=== PATIENT | male | born 1970 | race Two or more races ===

== ENCOUNTER 2024-10-16 15:33 | Emergency (ER) | payer OTHER ==
--- NOTE | 2024-10-16 16:27 | ED ---
Dizziness HPI - General Chief Complaint: Dizziness Stated Complaint: Headache/Stomach Pain Time Seen by Provider: 10/16/24 16:05 Source: patient, RN notes reviewed Mode of arrival: ambulatory Limitations: no limitations - History of Present Illness Initial Comments: This is a 53-year-old male with no reported medical conditions presenting to emergency department for complaints of dizziness. Patient is deaf and communicates via sign language therefore interpretation was used with video assistance at bedside for history. Patient states that he was in his car driving to work at approximately 1515 this afternoon when he began to feel dizzy. He states that it felt like the room was spinning. Patient arrived at work where he still was not feeling well or his boss urged him to go to the ER to be evaluated. Patient states the dizziness is worsened over the past hour and a half. He states the dizziness associated with positional changes. He den ies blurry or double vision, headaches, tinnitus, chest pain, difficulty breathing, heart palpitations. He states that something similar like this happened about a year ago where he was seen in the ER and given medications and felt better afterwards. He denies recent symptoms of fevers, chills, cough, congestion, rhinorrhea. - Related Data Previous Rx's Medication Instructions Recorded Meclizine [Antivert] 25 mg PO TID PRN #15 tab 10/16/24 Allergies Allergy/AdvReac Type Severity Reaction Status Date / Time No Known Allergies Allergy Verified 10/16/24 15:49 Review of Systems ROS Statement: Those systems with pertinent positive or pertinent negative responses have been documented in the HPI. ROS Other: All systems not noted in ROS Statement are negative. Past Medical History Past Medical History: No Reported History History of Any Multi-Drug Resistant Organisms: None Reported Additional Past Surgical History / Comment(s): left knee Past Psychological History: No Psychological Hx Reported Smoking Status: Never smoker Past Alcohol Use History: None Reported Past Drug Use History: None Reported General Exam Limitations: language barrier (deaf) Eye exam: Present: normal appearance, PERRL, EOMI. Absent: scleral icterus, conjunctival injection, periorbital swelling ENT exam: Present: normal exam, mucous membranes moist Neck exam: Present: normal inspection. Absent: tenderness, meningismus, lymphadenopathy Respiratory exam: Present: normal lung sounds bilaterally. Absent: respiratory distress, wheezes, rales, rhonchi, stridor Cardiovascular Exam: Present: regular rate, normal rhythm, normal heart sounds. Absent: systolic murmur, diastolic murmur, rubs, gallop, clicks GI/Abdominal exam: Present: soft, normal bowel sounds. Absent: distended, tenderness, guarding, rebound, rigid Extremities exam: Present: normal inspection, full ROM, normal capillary refill. Absent: tenderness, pedal edema, joint swelling, calf tenderness Neurological exam: Present: alert, oriented X3, CN II-XII intact Course Vital Signs 10/16/24 10/16/24 10/16/24 15:42 17:25 18:50 Temperature 97.9 F 98.0 F Pulse Rate 75 62 64 Respiratory 18 19 18 Rate Blood Pressure 163/97 156/111 161/104 O2 Sat by Pulse 100 99 99 Oximetry Medical Decision Making - Medical Decision Making Was pt. sent in by a medical professional or institution (Dr. PA, TIMBER GIRDLER, urgent care, hospital, or correction...) When possible be specific @ -No Did you speak to anyone other than the patient for history (EMS, parent, family, police, friend...)? What history was obtained from this source @ -No Did you review nursing and triage notes (agree or disagree)? Why? @ -I reviewed and agree with nursing and triage notes Were old charts reviewed (outside hosp., previous admission, EMS record, old EKG, old radiological studies, urgent care reports/EKG's, correction records)? Report findings @ -No old charts were reviewed Differential Diagnosis (chest pain, altered mental status, abdominal pain women, abdominal pain men, vaginal bleeding, weakness, fever, dyspnea, syncope, headache, dizziness, GI bleed, back pain, seizure, CVA, palpatations, mental health, musculoskeletal)? @ -Differential Dizziness: Benign paroxysmal positional Vertigo, Meniere's disease, otitis media, acoustic neuroma, vertebrobasilar insufficiency, cerebellar stroke, encephalitis, hypovolemic, arrhythmia, coronary artery syndrome, anemia, this is not meant to be an all-inclusive list EKG interpreted by me (3pts min.). @ -Completed at 1729 sinus rhythm with a ventricular of 67, OK interval 154, QRS 109, QT 406, QTc 422. X-rays interpreted by me (1pt min.). @ -None done CT interpreted by me (1pt min.). @ -CT of the brain and C-spine without contrast no acute intracranial process U/S interpreted by me (1pt. min.). @ -None done What testing was considered but not performed or refused? (CT, X-rays, U/S, labs)? Why? @ -None What meds were considered but not given or refused? Why? @ -None Did you discuss the management of the patient with other professionals (professionals i.e. DrTracey, PA, TIMBER GIRDLER, lab, RT, psych nurse, child protective services social worker, avionics systems repairer, teacher, purchasing officer, continuous pillowcase cutter)? Give summary @ -No Was smoking cessation discussed for >3mins.? @ -No Was critical care preformed (if so, how long)? @ -No Were there social determinants of health that impacted care today? How? (Homelessness, low income, unemployed, alcoholism, drug addiction, transportation, low edu. Level, literacy, decrease access to med. care, group home, rehab)? @ -No Was there de-escalation of care discussed even if they declined (Discuss DNR or withdrawal of care, Hospice)? DNR status @ -No What co-morbidities impacted this encounter? (DM, HTN, Smoking, COPD, CAD, Cancer, CVA, ARF, Chemo, Hep., AIDS, mental health diagnosis, sleep apnea, morbid obesity)? @ -None Was patient admitted / discharged? Hospital course, mention meds given and route, prescriptions, significant lab abnormalities, going to OR and other pertinent info. @ -Discharge. 53-year-old male presenting for department with dizziness. Neurological examination completed with no acute deficits, NIH is 0. EKG reveals sinus rhythm. Patient provided with IV fluids and meclizine. Laboratory testing unremarkable including CBC, CMP, troponin. CT brain no acute process. On reevaluation after medications patient states that he is feeling well and dizziness has markedly improved. Symptoms likely secondary to vertigo. Recommend follow-up with primary care provider as he is scheduled in 3 days. Return parameters discussed. Case discussed with Dr. Weeks Undiagnosed new problem with uncertain prognosis? @ -No Drug Therapy requiring intensive monitoring for toxicity (Heparin, Nitro, Insulin, Cardizem)? @ -No Were any procedures done? @ -No Diagnosis/symptom? @ -syncope Acute, or Chronic, or Acute on Chronic? @ -acute Uncomplicated (without systemic symptoms) or Complicated (systemic symptoms)? @ -uncomplicated Side effects of treatment? @ -No Exacerbation, Progression, or Severe Exacerbation? @ -No Poses a threat to life or bodily function? How? (Chest pain, USA, ND, pneumonia, PE, COPD, DKA, ARF, appy, cholecystitis, CVA, Diverticulitis, Homicidal, Suicidal, threat to staff... and all critical care pts) @ -No - Lab Data Result diagrams: 10/16/24 17:22 10/16/24 17:22 Lab Results 10/16/24 10/16/24 10/16/24 Range/Units 17:22 17:22 17:22 WBC 5.52 (4.50-10.00) 10*3/uL RBC 4.95 (4.40-5.60) 10*6/uL Hgb 14.5 (13.0-17.0) g/dL Hct 42.0 (39.6-50.0) % MCV 84.8 (80.0-97.0) fL MCH 29.3 (27.0-32.0) pg MCHC 34.5 (32.0-37.0) g/dL Plt Count 341 (140-440) 10*3/uL MPV 9.0 L (9.5-12.2) fL Immature Gran % (Auto) 0.4 % Neutrophils % 71.9 % Lymphocytes % 20.3 % Monocytes % 6.0 % Eosinophils % 0.9 % Basophils % 0.5 % Immature Gran # 0.02 (0.00-0.04) 10*3/uL Neutrophils # 3.97 (1.80-7.70) 10*3/uL Lymphocytes # 1.12 (0.90-5.00) 10*3/uL Monocytes # 0.33 (0.20-1.00) 10*3/uL Eosinophils # 0.05 (0.04-0.35) 10*3/uL Basophils # 0.03 (0.00-0.10) 10*3/uL Sodium 138 (137-145) mmol/L Potassium 4.1 (3.5-5.1) mmol/L Chloride 104 (98-107) mmol/L Carbon Dioxide 26 (22-30) mmol/L Anion Gap 8 mmol/L BUN 15 (9-20) mg/dL Creatinine 0.65 L (0.66-1.25) mg/dL Est GFR (CKD-EPI)AfAm >90 (>60 ml/min/1.73 sqM) Est GFR (CKD-EPI)NonAf >90 (>60 ml/min/1.73 sqM) Glucose 96 (74-99) mg/dL Calcium 9.8 (8.4-10.2) mg/dL Magnesium 2.3 (1.6-2.3) mg/dL Total Bilirubin 1.6 H (0.2-1.3) mg/dL AST 36 (17-59) U/L ALT 34 (4-49) U/L Alkaline Phosphatase 58 (38-126) U/L Troponin I 0.016 (0.000-0.034) ng/mL Total Protein 8.3 H (6.3-8.2) g/dL Albumin 4.4 (3.5-5.0) g/dL Lipase 47 (23-300) U/L Disposition Clinical Impression: Vertigo Disposition: HOME SELF-CARE Condition: Good Instructions (If sedation given, give patient instructions): Benign Paroxysmal Positional Vertigo (DC), Dizziness (ED) Additional Instructions: Please return to the Emergency Department if symptoms worsen or any other concerns. Prescriptions: Meclizine [Antivert] 25 mg PO TID PRN #15 tab PRN Reason: Vertigo Is patient prescribed a controlled substance at d/c from ED?: No Referrals: None,Stated [Primary Care Provider] - 1-2 days Time of Disposition: 18:14
[2024-10-16] MEDS: SODIUM CHLORIDE 0.9% 1,000 ML IV STA (17:18)
[2024-10-16] MEDS: MECLIZINE 12.5 MG TAB PO STA (17:19)
[2024-10-16] MEDS: ONDANSETRON 4 MG/2 ML VIAL IVP STA (17:19)
[2024-10-16 17:28] LABS: Basophils # (A) 0.03 10*3/uL (0.00-0.10); Basophils % (A) 0.5 %; Eosinophils # (A) 0.05 10*3/uL (0.04-0.35); Eosinophils % (A) 0.9 %; HGB 14.5 g/dL (13.0-17.0); Lymphocytes # (A) 1.12 10*3/uL (0.90-5.00); Lymphocytes % (A) 20.3 %; MCH 29.3 pg (27.0-32.0); MCHC 34.5 g/dL (32.0-37.0); MCV 84.8 fL (80.0-97.0); Monocytes # (A) 0.33 10*3/uL (0.20-1.00); Neutrophils # (A) 3.97 10*3/uL (1.80-7.70); Neutrophils % (A) 71.9 %; Platelet Count 341 10*3/uL (140-440); RBC 4.95 10*6/uL (4.40-5.60); RDW 12.5 % (11.5-14.5); WBC 5.52 10*3/uL (4.50-10.00)
[2024-10-16 17:38] LABS: ALT 34 U/L (4-49); African American GFR (CKD) >90 (>60 ml/min/1.73 sqM); Anion Gap 8 mmol/L; Blood Urea Nitrogen 15 mg/dL (9-20); Calcium 9.8 mg/dL (8.4-10.2); Carbon Dioxide 26 mmol/L (22-30); Chloride 104 mmol/L (98-107); Glucose 96 mg/dL (74-99); Lipase 47 U/L (23-300); Non-African American GFR(CKD) >90 (>60 ml/min/1.73 sqM); Sodium 138 mmol/L (137-145); Total Bilirubin 1.6 mg/dL (0.2-1.3)
[2024-10-16 17:41] LABS: AST 36 U/L (17-59); Albumin 4.4 g/dL (3.5-5.0); Alkaline Phosphatase 58 U/L (38-126); Magnesium 2.3 mg/dL (1.6-2.3); Potassium 4.1 mmol/L (3.5-5.1); Total Protein 8.3 g/dL (6.3-8.2)
--- NOTE | 2024-10-16 17:47 | CT ---
EXAMINATION TYPE: CT brain wo con DATE OF EXAM: 10/16/2024 COMPARISON: None CLINICAL INDICATION: Male, 53 years old with history of dizziness; PHH, dizziness TECHNIQUE: CT of the brain performed without contrast with sagittal and coronal reformats. CT DLP: 1164.[address] CTDI: mGy Automated exposure control for dose reduction was used. FINDINGS: There is no acute intracranial hemorrhage, mass effect, or midline shift identified. The ventricles and sulci are within normal limits in size. The globes are intact and the visualized sinuses are zara ar. IMPRESSION: No acute intracranial hemorrhage, mass effect, or midline shift is seen. [facility], , 10/16/2024 5:45 PM
[2024-10-16 19:06] VITALS: BP 161/104; PULSE 64; RESP 18; TEMP 98
== END 2024-10-16 19:00 | disposition home or self-care (01) ==
LOC: EDSEX → EC 15:33
DX: R42 Dizziness and giddiness (principal)
CPT/HCPCS: 36415; 93005; 80053; 83690; 83735; 84484; 85025; 70450; 99284; 96374; J2405

== ENCOUNTER 2024-12-30 10:40 | Emergency (ER) | payer OTHER ==
[2024-12-30 10:48] VITALS: RESP 18; TEMP 97.8
[2024-12-30 11:19] LABS: Basophils # (A) 0.04 10*3/uL (0.00-0.10); Basophils % (A) 0.5 %; Eosinophils # (A) 0.07 10*3/uL (0.04-0.35); Eosinophils % (A) 0.9 %; HCT 38.7 % (39.6-50.0); HGB 13.1 g/dL (13.0-17.0); Lymphocytes # (A) 1.53 10*3/uL (0.90-5.00); Lymphocytes % (A) 20.2 %; MCH 29.2 pg (27.0-32.0); MCHC 33.9 g/dL (32.0-37.0); MCV 86.4 fL (80.0-97.0); Monocytes # (A) 0.47 10*3/uL (0.20-1.00); Monocytes % (A) 6.2 %; Neutrophils # (A) 5.45 10*3/uL (1.80-7.70); Neutrophils % (A) 71.9 %; Platelet Count 276 10*3/uL (140-440); RBC 4.48 10*6/uL (4.40-5.60); RDW 12.4 % (11.5-14.5); WBC 7.58 10*3/uL (4.50-10.00)
[2024-12-30] MEDS: MECLIZINE 12.5 MG TAB PO STA ×2 (11:20→17:46)
[2024-12-30] MEDS: SODIUM CHLORIDE 0.9% 1,000 ML IV STA (11:20)
[2024-12-30] MEDS: METOCLOPRAMIDE 5 MG/ML 2 ML VIAL IVP STA (11:24)
[2024-12-30 11:39] LABS: ALT 27 U/L (4-49); AST 24 U/L (17-59); African American GFR (CKD) >90 (>60 ml/min/1.73 sqM); Albumin 3.9 g/dL (3.5-5.0); Alkaline Phosphatase 61 U/L (38-126); Anion Gap 8 mmol/L; Blood Urea Nitrogen 19 mg/dL (9-20); Calcium 9.5 mg/dL (8.4-10.2); Carbon Dioxide 24 mmol/L (22-30); Chloride 106 mmol/L (98-107); Glucose 111 mg/dL (74-99); Magnesium 2.3 mg/dL (1.6-2.3); Non-African American GFR(CKD) >90 (>60 ml/min/1.73 sqM); Potassium 3.5 mmol/L (3.5-5.1); Sodium 138 mmol/L (137-145); Total Protein 7.1 g/dL (6.3-8.2)
--- NOTE | 2024-12-30 12:20 | ED ---
General Adult HPI - General Source: patient, seismic interpreter, RN notes reviewed Mode of arrival: ambulatory Limitations: language barrier <Reza Barone - Last Filed: 12/30/24 16:05> <Mo Brown - Last Filed: 12/30/24 18:21> - General Chief complaint: Headache Stated complaint: Weakness,Abd pain Time Seen by Provider: 12/30/24 10:55 - History of Present Illness Initial comments: 54-year-old male presents emergency department chief complaint of dizziness. Patient started having dizziness at work today. Is worse with movement better at rest. Patient has associated nausea. No chest pain shortness of breath no focal weakness no complaints of abdominal pain. Patient seen here few months ago for similar complaints. (Reza Barone) - Related Data Home Medications Medication Instructions Recorded Confirmed Triamcinolone 0.1% Cream [Kenalog 1 applicatio TOPICAL BID 12/30/24 12/30/24 0.1% Cream] buPROPion XL [Wellbutrin XL] 150 mg PO DAILY 12/30/24 12/30/24 Previous Rx's Medication Instructions Recorded Meclizine [Antivert] 25 mg PO TID PRN #15 tab 10/16/24 Meclizine [Antivert] 25 mg PO TID 14 Days #42 tab 12/30/24 Allergies Allergy/AdvReac Type Severity Reaction Status Date / Time No Known Allergies Allergy Verified 12/30/24 17:07 Review of Systems ROS Other: All systems not noted in ROS Statement are negative. <Reza Barone - Last Filed: 12/30/24 16:05> ROS Other: All systems not noted in ROS Statement are negative. <Mo Brown - Last Filed: 12/30/24 18:21> ROS Statement: Those systems with pertinent positive or pertinent negative responses have been documented in the HPI. Past Medical History Past Medical History: No Reported History History of Any Multi-Drug Resistant Organisms: None Reported Additional Past Surgical History / Comment(s): left knee Past Psychological History: No Psychological Hx Reported Smoking Status: Never smoker Past Alcohol Use History: None Reported Past Drug Use History: None Reported <Reza Barone - Last Filed: 12/30/24 16:05> General Exam Limitations: language barrier General appearance: alert, in no apparent distress Head exam: Present: atraumatic, normocephalic, normal inspection Eye exam: Present: normal appearance, PERRL, EOMI. Absent: scleral icterus, conjunctival injection, periorbital swelling Neck exam: Present: normal inspection. Absent: tenderness, meningismus, lymphadenopathy Respiratory exam: Present: normal lung sounds bilaterally. Absent: respiratory distress, wheezes, rales, rhonchi, stridor Cardiovascular Exam: Present: regular rate, normal rhythm, normal heart sounds. Absent: systolic murmur, diastolic murmur, rubs, gallop, clicks GI/Abdominal exam: Present: soft, normal bowel sounds. Absent: distended, tenderness, guarding, rebound, rigid Neurological exam: Present: alert, oriented X3, CN II-XII intact, reflexes normal. Absent: motor sensory deficit <Reza Barone - Last Filed: 12/30/24 16:05> Course Vital Signs 12/30/24 12/30/24 12/30/24 10:42 13:36 15:32 Temperature 97.8 F Pulse Rate 77 61 59 L Respiratory 18 18 18 Rate Blood Pressure 143/91 139/95 158/103 O2 Sat by Pulse 98 100 98 Oximetry 12/30/24 17:43 Temperature Pulse Rate 65 Respiratory 18 Rate Blood Pressure 133/96 O2 Sat by Pulse 100 Oximetry EKG Findings - EKG Comments: EKG Findings:: EKG performed at 11: 30 sinus bradycardia rate of 57 SC 163 QRS 112 QT/QTc 429/424 - EKG Results: EKG: interpreted by ERMD <Reza Barone - Last Filed: 12/30/24 16:05> Medical Decision Making - Lab Data Result diagrams: 12/30/24 11:12 12/30/24 11:12 <Reza Barone - Last Filed: 12/30/24 16:05> - Lab Data Result diagrams: 12/30/24 11:12 12/30/24 11:12 <Mo Brown - Last Filed: 12/30/24 18:21> - Medical Decision Making Was pt. sent in by a medical professional or institution (, PA, VENEER CLIPPER HELPER, urgent care, hospital, or assisted...) When possible be specific @ -No Did you speak to anyone other than the patient for history (EMS, parent, family, police, friend...)? What history was obtained from this source @ -No Did you review nursing and triage notes (agree or disagree)? Why? @ -I reviewed and agree with nursing and triage notes Were old charts reviewed (outside hosp., previous admission, EMS record, old EKG, old radiological studies, urgent care reports/EKG's, assisted records)? Report findings @ -No old charts were reviewed Differential Diagnosis (chest pain, altered mental status, abdominal pain women, abdominal pain men, vaginal bleeding, weakness, fever, dyspnea, syncope, headache, dizziness, GI bleed, back pain, seizure, CVA, palpatations, mental health, musculoskeletal)? @ -Differential Dizziness: Benign paroxysmal positional Vertigo, Meniere's disease, otitis media, acoustic neuroma, vertebrobasilar insufficiency, cerebellar stroke, encephalitis, hypovolemic, arrhythmia, coronary artery syndrome, anemia, this is not meant to be an all-inclusive list EKG interpreted by me (3pts min.). @ -As above X-rays interpreted by me (1pt min.). @ -None done CT interpreted by me (1pt min.). @ -CT brain, angio pending U/S interpreted by me (1pt. min.). @ -None done What testing was considered but not performed or refused? (CT, X-rays, U/S, labs)? Why? @ -None What meds were considered but not given or refused? Why? @ -None Did you discuss the management of the patient with other professionals (professionals i.e. , PA, VENEER CLIPPER HELPER, lab, RT, psych nurse, social security benefits interviewer, social security benefits interviewer, teacher, finance officer, mattress spring encaser)? Give summary @ -No Was smoking cessation discussed for >3mins.? @ -No Was critical care preformed (if so, how long)? @ -No Were there social determinants of health that impacted care today? How? (Homelessness, low income, unemployed, alcoholism, drug addiction, transportation, low edu. Level, literacy, decrease access to med. care, alf, rehab)? @ -No Was there de-escalation of care discussed even if they declined (Discuss DNR or withdrawal of care, Hospice)? DNR status @ -No What co-morbidities impacted this encounter? (DM, HTN, Smoking, COPD, CAD, Cancer, CVA, ARF, Chemo, Hep., AIDS, mental health diagnosis, sleep apnea, morbid obesity)? @ -None Was patient admitted / discharged? Hospital course, mention meds given and route, prescriptions, significant lab abnormalities, going to OR and other pertinent info. @ -Case signed out to Dr. Brown pending CT CTA given intractable dizziness patient did receive Antivert, Reglan, Zofran and Valium. (Reza Barone) Patient signed out to me pending results of CT imaging. Patient presents with what appears to be peripheral vertigo. Was seen by previous provider. States has dizziness with certain movements, coughing, putting his head down. Improves with rest. Patient received numerous rounds of vertigo medications here in the department without much improvement and therefore CT imaging was obtained. Laboratory studies were unremarkable. No obvious UTI. EKG is interpreted by midlevel provider within acceptable limits. CT brain and CT angiogram head and neck as interpreted by myself negative for any obvious acute process. 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 I discussed results with the patient. He is mostly feeling improved at this time. I did offer admission for neurology evaluation but he elects to go home. He is able to stand and ambulate. Patient is deaf and therefore communication is through wedding makeup artist video phone. Our wedding makeup artist was Shirley, #[phone]. I did discuss with the patient and I will provide him with a prescription for meclizine as well as strict return precautions. He was in agreement this plan. I will provide the patient with a prescription for meclizine. I instructed the patient to follow up with their PCP in the next 1-3 days.. I explained that the patient should return to the emergency department if they experience any worsening symptoms. Strict return precautions were discussed with the patient. The patient expressed understanding of these instructions. I answered all questions that the patient had. The patient was discharged home in good c ondition with their prescriptions and follow up information. Diagnosis/symptom? @ -Vertigo Acute, or Chronic, or Acute on Chronic? @ -Acute Uncomplicated (without systemic symptoms) or Complicated (systemic symptoms)? @ -Uncomplicated Side effects of treatment? @ -None Exacerbation, Progression, or Severe Exacerbation] @ -No Poses a threat to life or bodily function? @ -Unlikely at this time (Mo Brown) - Lab Data Lab Results 12/30/24 12/30/24 12/30/24 Range/Units 11:12 11:12 11:12 WBC 7.58 (4.50-10.00) 10*3/uL RBC 4.48 (4.40-5.60) 10*6/uL Hgb 13.1 (13.0-17.0) g/dL Hct 38.7 L (39.6-50.0) % MCV 86.4 (80.0-97.0) fL MCH 29.2 (27.0-32.0) pg MCHC 33.9 (32.0-37.0) g/dL Plt Count 276 (140-440) 10*3/uL MPV 9.1 L (9.5-12.2) fL Immature Gran % (Auto) 0.3 % Neutrophils % 71.9 % Lymphocytes % 20.2 % Monocytes % 6.2 % Eosinophils % 0.9 % Basophils % 0.5 % Immature Gran # 0.02 (0.00-0.04) 10*3/uL Neutrophils # 5.45 (1.80-7.70) 10*3/uL Lymphocytes # 1.53 (0.90-5.00) 10*3/uL Monocytes # 0.47 (0.20-1.00) 10*3/uL Eosinophils # 0.07 (0.04-0.35) 10*3/uL Basophils # 0.04 (0.00-0.10) 10*3/uL Sodium 138 (137-145) mmol/L Potassium 3.5 (3.5-5.1) mmol/L Chloride 106 (98-107) mmol/L Carbon Dioxide 24 (22-30) mmol/L Anion Gap 8 mmol/L BUN 19 (9-20) mg/dL Creatinine 0.68 (0.66-1.25) mg/dL Est GFR (CKD-EPI)AfAm >90 (>60 ml/min/1.73 sqM) Est GFR (CKD-EPI)NonAf >90 (>60 ml/min/1.73 sqM) Glucose 111 H (74-99) mg/dL Calcium 9.5 (8.4-10.2) mg/dL Magnesium 2.3 (1.6-2.3) mg/dL Total Bilirubin 1.1 (0.2-1.3) mg/dL AST 24 (17-59) U/L ALT 27 (4-49) U/L Alkaline Phosphatase 61 (38-126) U/L Troponin I <0.012 (0.000-0.034) ng/mL Total Protein 7.1 (6.3-8.2) g/dL Albumin 3.9 (3.5-5.0) g/dL Urine Color Urine Appearance (Clear) Urine pH (5.0-8.0) Ur Specific [place] (1.001-1.035) Urine Protein (Negative) Urine Glucose (UA) (Negative) Urine Ketones (Negative) Urine Blood (Negative) Urine Nitrite (Negative) Urine Bilirubin (Negative) Urine Urobilinogen (<2.0) mg/dL Ur Leukocyte Esterase (Negative) Urine RBC (0-5) /hpf Urine WBC (0-5) /hpf Urine Bacteria (None) /hpf 12/30/24 Range/Units 17:10 WBC (4.50-10.00) 10*3/uL RBC (4.40-5.60) 10*6/uL Hgb (13.0-17.0) g/dL Hct (39.6-50.0) % MCV (80.0-97.0) fL MCH (27.0-32.0) pg MCHC (32.0-37.0) g/dL Plt Count (140-440) 10*3/uL MPV (9.5-12.2) fL Immature Gran % (Auto) % Neutrophils % % Lymphocytes % % Monocytes % % Eosinophils % % Basophils % % Immature Gran # (0.00-0.04) 10*3/uL Neutrophils # (1.80-7.70) 10*3/uL Lymphocytes # (0.90-5.00) 10*3/uL Monocytes # (0.20-1.00) 10*3/uL Eosinophils # (0.04-0.35) 10*3/uL Basophils # (0.00-0.10) 10*3/uL Sodium (137-145) mmol/L Potassium (3.5-5.1) mmol/L Chloride (98-107) mmol/L Carbon Dioxide (22-30) mmol/L Anion Gap mmol/L BUN (9-20) mg/dL Creatinine (0.66-1.25) mg/dL Est GFR (CKD-EPI)AfAm (>60 ml/min/1.73 sqM) Est GFR (CKD-EPI)NonAf (>60 ml/min/1.73 sqM) Glucose (74-99) mg/dL Calcium (8.4-10.2) mg/dL Magnesium (1.6-2.3) mg/dL Total Bilirubin (0.2-1.3) mg/dL AST (17-59) U/L ALT (4-49) U/L Alkaline Phosphatase (38-126) U/L Troponin I (0.000-0.034) ng/mL Total Protein (6.3-8.2) g/dL Albumin (3.5-5.0) g/dL Urine Color Colorless Urine Appearance Clear (Clear) Urine pH 6.5 (5.0-8.0) Ur Specific [place] 1.039 H (1.001-1.035) Urine Protein Negative (Negative) Urine Glucose (UA) Negative (Negative) Urine Ketones Trace H (Negative) Urine Blood Moderate H (Negative) Urine Nitrite Negative (Negative) Urine Bilirubin Negative (Negative) Urine Urobilinogen <2.0 (<2.0) mg/dL Ur Leukocyte Esterase Negative (Negative) Urine RBC 26 H (0-5) /hpf Urine WBC 4 (0-5) /hpf Urine Bacteria Rare H (None) /hpf Disposition <Reza Barone - Last Filed: 12/30/24 16:05> Is patient prescribed a controlled substance at d/c from ED?: No Time of Disposition: 17:30 <Mo Brown - Last Filed: 12/30/24 18:21> Clinical Impression: Vertigo Disposition: HOME SELF-CARE Condition: Good Instructions (If sedation given, give patient instructions): Vertigo (ED) Prescriptions: Meclizine [Antivert] 25 mg PO TID 14 Days #42 tab Referrals: None,Stated [Primary Care Provider] - 1-2 days Tristen Banerjee DO [STAFF PHYSICIAN] - 1-2 days Forms: [facility] PCPs
[2024-12-30] MEDS: ONDANSETRON 4 MG/2 ML VIAL IVP STA (13:54)
--- NOTE | 2024-12-30 16:44 | CT ---
EXAMINATION TYPE: CT brain wo con CT DLP: 1203.6 mGycm, Automated exposure control for dose reduction was used. DATE OF EXAM: 12/30/2024 4:38 PM COMPARISON: CT brain 10/16/2024 CLINICAL INDICATION:Male, 54 years old with history of Intractable dizziness, DIZZINESS TECHNIQUE: Brain: Multiple axial CT images of the brain were obtained without IV contrast. . Coronal and sagitta l reformats reviewed. FINDINGS: Brain: Extra-axial spaces: No abnormal extra-axial fluid collections. Ventricular system: Within normal limits Cerebral parenchyma: No acute intraparenchymal hemorrhage or mass effect. The moffett-white junction is well differentiated. Cerebellum: Small region of encephalomalacia within the right cerebellar hemisphere from prior injury . Mass effect: No evidence of midline shift. Intracranial vasculature: unremarkable Soft tissues: Normal. Calvarium/osseous structures: No depressed skull fracture. Paranasal sinuses and mastoid air cells: The mastoid air cells are clear. Minimal mucosal thickening ethmoid sinuses. Aplasia of the bilateral frontal sinuses. Visualized orbits: Orbital contents are intact. IMPRESSION: 1. No acute intracranial process. 2. Small region of encephalomalacia within the right cerebellar hemisphere from prior injury. [facility], , 12/30/2024 4:41 PM
--- NOTE | 2024-12-30 16:49 | CT ---
EXAMINATION TYPE: CT angio head neck CT DLP: 447.9 mGycm, Automated exposure control for dose reduction was used. DATE OF EXAM: 12/30/2024 4:38 PM COMPARISON: CT brain 12/30/2024, 10/16/2024. CLINICAL INDICATION:Male, 54 years old with history of Intractable dizziness; PHH, DIZZINESS TECHNIQUE: Axially acquired helical CT angiogram of the head and neck was obtained with contrast util izing 75 cc of Isovue-370 administered intravenously. Axial images are supplemented with 3D reconstru ctions which were post-processed at an independent workstation. NASCET criteria used. MIP imaging performed on a separate workstation and submitted for review. FINDINGS: CTA HEAD: No evidence of acute intracranial hemorrhage, mass effect, or midline shift. The ventricles, sulci, a nd cisterns are unremarkable. The visualized portions of the internal carotid arteries, middle cerebral arteries, anterior cerebral arteries, and posterior cerebral arteries are patent. origin of the left [employer]UMENT [employer]ABLE [employer]IC[employer]. The basilar and vertebral arteries are patent. CTA NECK: Right Carotid System: The common carotid artery and external carotid artery are patent. The carotid bifurcation demonstrate s no evidence of hemodynamically significant stenosis. The remaining portions of the internal carotid artery demonstrate normal size without significant narrowing. Left Carotid System: The common carotid artery and external carotid artery are patent. The carotid bifurcation demonstrate s no evidence of hemodynamically significant stenosis. The remaining portions of the internal carotid artery demonstrate normal size without significant narrowing. Vertebral arteries are patent without evidence hemodynamically significant stenosis. Left vertebral a rtery is dominant. There is a bovine aortic arch. The origins of the great vessels are patent. No evidence of hemodynami cailin significant stenosis. Degenerative disc disease with disc space narrowing and anterior osteophytosis at C5-C7. IMPRESSION: 1. No evidence of dissection of the cervical internal carotid arteries or vertebral arteries or any e vidence of significant stenosis at the carotid bifurcations. 2. No evidence of high-grade stenosis or intracranial aneurysm. [facility], , 12/30/2024 4:47 PM
[2024-12-30 17:24] LABS: Bacteria,Urine Rare /hpf; Bilirubin,Urine Negative (Negative); Blood,Urine Moderate (Negative); Color,Urine Colorless; Glucose,Urine (UA) Negative (Negative); Ketones,Urine Trace (Negative); Leukocyte Esterase,Urine Negative (Negative); Nitrite,Urine Negative (Negative); PH, Urine 6.5 (5.0-8.0); Protein,Urine Negative (Negative); RBC,Urine 26 /hpf (0-5); Specific Gravity,Urine 1.039 (1.001-1.035); Urobilinogen,Urine <2.0 mg/dL (<2.0); WBC,Urine 4 /hpf (0-5)
[2024-12-30 17:44] VITALS: BP 133/96; PULSE 65
== END 2024-12-30 17:49 | disposition home or self-care (01) ==
LOC: EC 10:40
DX: R42 Dizziness and giddiness (principal)
CPT/HCPCS: 36415; 93005; 80053; 83735; 84484; 85025; 81001; 70496; 70450; 70498; 99285; 96374; 96375; 96361; J2765; J3360; J2405; Q9967